=== PATIENT | male | born 1970 | race Caucasian/White ===

== ENCOUNTER 2024-11-15 20:12 | Emergency (ER) | payer OTHER ==
[~2024-11-15] VITALS: Ht 200.7 cm; Wt 131.0 kg
[2024-11-15 20:53] LABS: BASOPHILS 0.5 % (0.2-1.2); EOSINOPHILS 2.1 % (0.8-7.0); LYMPHOCYTES 17.2 % (21.8-53.1); MCH 28.3 PG (25.7-32.2); MCHC 34.2 g/dL (32.3-36.5); MCV 82.8 fL (79.0-92.2); MONOCYTES 8.4 % (5.3-12.2); NEUTROPHILS 71.5 % (34.0-67.9); RBC 4.88 M/uL (4.63-6.08)
[2024-11-15 21:15] LABS: ALT (SGPT) 36.0 U/L (14-59); AST (SGOT) 18.0 U/L (15-37); GLOMERULAR FILTRATION RATE,EST 94.0 mL/min (>60); PROTEIN, TOTAL 7.5 g/dL (6.4-8.2); UREA NITROGEN 16.0 mg/dL (7-18)
[2024-11-15 23:58] VITALS: BP 140/97
--- NOTE | 2024-11-16 09:25 | EKG ---
[facility] [address] [facility] [place], [place] [address] Signed Normal sinus rhythm Normal ECG No previous ECGs available Confirmed by Fan Saldaña DO ([id number]) on 11/16/2024 9:25:34 AM Electronically Signed By: FAN SALDAÑA DO 11/16/24924 PATIENT NAME: ALFREDO KENNEY Robles Electrocardiogram DATE OF : 66 PHYSICIAN: FAN SALDAÑA DO REPORT #: [id number] REPORT IS CONFIDENTIAL AND NOT TO BE RELEASED WITHOUT AUTHORIZATION
== END 2024-11-16 00:06 | disposition home or self-care (01) ==
LOC: ED 20:12
PROVIDERS: Internal Medicine
DX: H81.10 Benign paroxysmal vertigo, unspecified ear (principal)
CPT/HCPCS: 36415; 80053; 83735; 84484; 85025; 93005; 93010; 99284